=== PATIENT | female | born 1940 | race Caucasian/White ===

== ENCOUNTER 2018-07-08 06:01 | Inpatient (IN) | payer OTHER, BC ==
[2018-07-07 11:03] LABS: BASOPHIL % 0.2 % (0-2); PLATELET COUNT 356 x10^3mcL (130-400); RED CELL DISTRIBUTION WIDTH 12.5 % (11.5-14.5)
[2018-07-07 11:21] LABS: CALCIUM 9.8 mg/dL (8.5-10.1); CARBON DIOXIDE 26.7 mmol/L (21-32); CHLORIDE SERUM 101 mmol/L (98-107); CREATININE SERUM 1.1 mg/dL (0.6-1.0); GLUCOSE SERUM 106 mg/dL (74-106); POTASSIUM SERUM 3.1 mmol/L (3.5-5.1); SODIUM SERUM 140 mmol/L (136-145)
[~2018-07-08] VITALS: Ht 152.4 cm; Wt 74.0 kg
[2018-07-08 06:50] VITALS: BP 138/60
[2018-07-08 14:24] VITALS: BP 150/61
[2018-07-08 17:24] VITALS: BP 127/46
[2018-07-08 20:53] VITALS: BP 129/53
[2018-07-09 04:40] VITALS: BP 134/58
[2018-07-09 08:29] VITALS: BP 146/58
[2018-07-09 17:14] VITALS: BP 134/53
[2018-07-09 20:39] VITALS: BP 122/41
[2018-07-10 05:43] VITALS: BP 141/64
[2018-07-10 10:06] VITALS: BP 119/62
[2018-07-10 17:35] VITALS: BP 129/59
[2018-07-10 20:56] VITALS: BP 133/69
[2018-07-11 05:41] VITALS: BP 144/64
[2018-07-11 07:01] LABS: CALCIUM 8.7 mg/dL (8.5-10.1); CARBON DIOXIDE 25.5 mmol/L (21-32); CHLORIDE SERUM 107 mmol/L (98-107); CREATININE SERUM 0.6 mg/dL (0.6-1.0); GLUCOSE SERUM 104 mg/dL (74-106); POTASSIUM SERUM 3.7 mmol/L (3.5-5.1); SODIUM SERUM 141 mmol/L (136-145)
[2018-07-11 09:01] VITALS: BP 143/46
[2018-07-11] MEDS ORDERED: ACETAMINOPHEN-H1 TA1 PO (13:38)
[2018-07-11 14:42] VITALS: Ht 152.4 cm; Wt 74.0 kg
== END 2018-07-11 15:20 | DRG 497 ==
LOC: MU 06:01
PROVIDERS: Neuromusculoskeletal Medicine, Sports Medicine
PROC: 0PSJ04Z Reposition Left Radius with Internal Fixation Device, Open Approach (ICD-10-PCS; 2018-07-08)
PROC: 0RP Upper Joints, Removal (ICD-10-PCS; principal; 2018-07-08 10:00)
DX: M97.42XA Periprosthetic fracture around internal prosthetic left elbow joint, initial encounter (principal); G56.32 Lesion of radial nerve, left upper limb; F41.9 Anxiety disorder, unspecified; I10 Essential (primary) hypertension; I25.2 Old myocardial infarction; Z86.73 Personal history of transient ischemic attack (TIA), and cerebral infarction without residual deficits; W22.8XXA Striking against or struck by other objects, initial encounter; Y92.9 Unspecified place or not applicable
CPT/HCPCS: 94150; 97116-GP; 97530-GP; C1713; J0690; J1170; J2704; J3010; J3480; J3490; J7040; J7120